=== PATIENT | male | born 1960 | race African-American/Black ===

== ENCOUNTER 2019-09-27 18:16 | Emergency (ER) | payer MEDICAID ==
[~2019-09-27] VITALS: Ht 172.7 cm; Wt 87.0 kg
[2019-09-27] MEDS ORDERED: HYDROCODONE/ACETAMINOPHEN 5/325MG TABLET PO ONE (18:45)
[2019-09-27] MEDS ORDERED: IBUPROFEN 600MG TABLET PO ONE (18:45)
[2019-09-27] MEDS ORDERED: AMOXICILLIN/POTASSIUM CLAVULANATE 875/125MG TAB PO ONE (18:45)
[2019-09-27 20:26] VITALS: BP 107/76
== END 2019-09-27 20:29 | disposition home or self-care (01) ==
LOC: ER 18:16
DX: H65.02 Acute serous otitis media, left ear (principal); J45.909 Unspecified asthma, uncomplicated
CPT/HCPCS: 99284